=== PATIENT | male | born 1990 | race Caucasian/White ===

== ENCOUNTER → 2018-02-02 | Outpatient (CLI) | payer OTHER ==
[2018-02-02 13:09] LABS: BASOPHILS ABSOLUTE AUTO 0.01 K/mm3 (0.00-0.23); BASOPHILS PERCENT AUTO 0 % (0-2); EOSINOPHILS ABSOLUTE AUTO 0.21 K/mm3 (0.00-0.68); EOSINOPHILS PERCENT AUTO 6 % (0-6); Hematocrit 40.9 % (37.0-53.0); Hemoglobin 13.8 g/dL (13.5-17.5); IMMATURE GRAN PERCENT AUTO 0 % (0-1); LYMPHOCYTES ABSOLUTE AUTO 1.09 K/mm3 (0.84-5.20); LYMPHOCYTES PERCENT AUTO 30 % (21-46); MONOCYTES ABSOLUTE AUTO 0.66 K/mm3 (0.16-1.47); MONOCYTES PERCENT AUTO 18 % (4-13); Mean Corpuscular HGB 31.2 pg (26.0-34.0); Mean Corpuscular HGB Conc 33.7 g/dL (31.5-36.5); Mean Corpuscular Volume 92 fL (80-100); Mean Platelet Volume 10.3 fL (9.1-12.4); NEUTROPHILS ABSOLUTE AUTO 1.71 K/mm3 (1.96-9.15); NEUTROPHILS PERCENT AUTO 47 % (41-73); Platelet Count 244 K/mm3 (150-400); RDW Coefficient Variation 12.7 % (11.7-14.2); Red Blood Cell Count 4.43 M/mm3 (4.30-5.90); White Blood Cell Count 3.68 K/mm3 (4.00-11.30)
[2018-02-02 13:22] LABS: Alanine Aminotransfer (ALT/SGP 45 U/L (12-78); Albumin, Blood 3.6 g/dL (3.4-5.0); Albumin/Globulin Ratio 0.9 (0.8-1.8); Alk Phos 68 U/L (40-126); Anion Gap 9 mmol/L (6-16); Aspartate Aminotrans (AST/SGOT 29 U/L (12-37); Bilirubin, Total 0.2 mg/dL (0.1-1.0); Blood Urea Nitrogen 10 mg/dL (8-24); Bun/Creatinine Ratio 11.4 (12.0-20.0); CO2, Blood 26 mmol/L (21-32); Calcium, Blood 9.1 mg/dL (8.5-10.1); Chloride, Blood 104 mmol/L (98-108); Creatinine, Blood 0.88 mg/dL (0.60-1.20); Globulin, Blood 4.2 g/dL (2.2-4.0); Glomerular Filtration Rate >60 (60-); Glucose, Blood 95 mg/dL (70-99); Potassium, Blood 4.2 mmol/L (3.5-5.5); Sodium, Blood 139 mmol/L (136-145); Total Protein, Blood 7.8 g/dL (6.4-8.2)
== END | disposition home or self-care (01) ==
LOC: LAB EV 13:04
PROVIDERS: Physician Assistant Medical
DX: L28.2 Other prurigo (principal)
CPT/HCPCS: 80053; 85025; 85651; 86140

== ENCOUNTER → 2018-02-04 | Outpatient (CLI) | payer OTHER | LOC: PLD 07:05 → LAB SHORT 07:05 | DX: L30.8 Other specified dermatitis (principal) | CPT/HCPCS: 88312 ==

== ENCOUNTER 2024-06-14 10:33 | Day surgery (SDC) | payer OTHER ==
[~2024-06-14] VITALS: Ht 182.9 cm; Wt 116.2 kg
[~2024-06-14 10:33] MED LIST: Ciprofloxacin 0.3% Opth Soln 2.5 ML BTL ONE; Lactated Ringer's 0 ML IV ONE; Lidocaine 1%-Epineph 1:100000 20 ML MDV ONE; Triamcinolone Inj Susp 40 MG / ML 1ML Vial ONE
[2024-06-14] MEDS ORDERED: Lactated Ringer's 1,000 ML IV ONE (10:48)
[2024-06-14] MEDS ORDERED: BUPR75 PO (10:59)
[2024-06-14] MEDS ORDERED: Lidocaine HCl 4% 5 ML SDA ONE (11:16)
[2024-06-14] MEDS ORDERED: propofoL 20 ML IV ONE (11:19)
[2024-06-14] MEDS ORDERED: FentaNYL Citrate 50 MCG/ML 2 ML Injection ONE (11:23)
[2024-06-14] MEDS ORDERED: Ciprofloxacin 0.3% Opth Soln 2.5 ML BTL ONE (11:24)
[2024-06-14] MEDS ORDERED: Triamcinolone Inj Susp 40 MG / ML 1ML Vial ONE (11:24)
[2024-06-14] MEDS ORDERED: EPINEPhrine HCl 1 MG/ML 1ML Amp ONE (11:24)
[2024-06-14] MEDS ORDERED: Rocuronium Bromide 10 MG/ML 5ML Injection IV ONE (11:35)
[2024-06-14] MEDS ORDERED: Ondansetron HCl 2 MG / ML 2ML Vial ONE (11:35)
[2024-06-14] MEDS ORDERED: Ketorolac Tromethamine 30mg Vial ONE (11:35)
[2024-06-14] MEDS ORDERED: Dexamethasone Sod Phos 10 MG/ML 1ML VIAL ONE (11:35)
[2024-06-14] MEDS ORDERED: Lidocaine 2%-Epineph 1:200000 20 ML SDV INJ ONE ×2 (12:09)
[2024-06-14] MEDS ORDERED: Bacitracin Opth Ointment XX ONE (13:41)
[2024-06-14 14:22] VITALS: BP 115/77
--- NOTE | 2024-06-14 14:26 | NUR ---
06/14/24 1426 Idania Alvares PT'S AT THE SIDE OF THE RECLINER. PT STATED THAT HE HAS A PALMER, RATED IT A 2/10. AN ICE PACK WAS GIVEN, FLUIDS ENCOURAGED TO HELP PREVENT PALMER. PT DENIED ANY NAUSEA. VSS, PT TOLERATING FLUIDS. PT CALM AND COOPERATIVE WITH CARE PROVIDED. NATALIE.
== END 2024-06-14 15:00 | disposition home or self-care (01) ==
LOC: ORSCSDS 10:33
PROVIDERS: Otolaryngology
PROC: 09Q80ZZ Repair Left Tympanic Membrane, Open Approach (ICD-10-PCS; principal; 2024-06-14 12:00)
DX: H90.A21 Sensorineural hearing loss, unilateral, right ear, with restricted hearing on the contralateral side (principal); H69.93 Unspecified Eustachian tube disorder, bilateral; Z87.891 Personal history of nicotine dependence; F32.A Depression, unspecified; Z79.899 Other long term (current) drug therapy; Z68.34 Body mass index [BMI] 34.0-34.9, adult
CPT/HCPCS: A9270; C1713; J0171; J1100; J1885; J2001; J2405; J2704; J3010; J3301; J7120